=== PATIENT | female | born 1970 | race Caucasian/White ===

== ENCOUNTER 2020-04-12 11:45 | Outpatient (REF) | payer OTHER, SELFPAY ==
[2020-04-13 09:17] LABS: Mumps Virus IgG Antibody 9.24 AU/mL; Varicella IgG Antibody >4000.00 index
[2020-04-13 13:32] LABS: Rubella IgM Antibody <20.00 AU/mL
[2020-04-15 07:47] LABS: HBc Num1 0.08 S/CO (0.00-0.79); Hepatitis B Core Antibody Nonreactive (Nonreactive)
== END 2020-04-12 11:46 | disposition home or self-care (01) ==
LOC: HO.LAB 11:45
PROVIDERS: PCP Internal Medicine; Visit Provider Nurse Practitioner Family
DX: Z00.00 Encounter for general adult medical examination without abnormal findings (principal)
CPT/HCPCS: 86704; 86735; 86762; 86765; 86787

== ENCOUNTER 2020-09-02 07:00 | Outpatient (RCR) | payer OTHER, SELFPAY ==
--- NOTE | 2020-06-20 16:18 | MHC.PT.EP ---
[facility] [place] [facility] [place] [facility] [place] [facility] [address] Mahin Tejada [address] [phone] F: [phone] F: [phone] F: [phone] F: [phone] Physical Therapy Plan of Care Date of Evaluation: 06/20/20 Date of Surgery: Diagnosis: right shoulder pain Assessment: The patient had reduced ROM in shoulder, reduced strength in right shoulder, fairly normal ROM in cervical spine. Pt was positive for impingement tests for right RTC. Pt negative for RTC tests. Pt was negative for labral special tests as well. Pt has less pain with PROM. Her pain does not have a capsular pattern as she had good capsular mobility passively. Pt is a good candidate to improve gentle ROM and strength exercises. Frequency and Duration: The patient will be seen 2x/week x 4 weeks Short Term Goals: 1. Pt to be able to report 50% improvement in functional reaching. Pt to be able to report 50% less pain with getting dressed. Curriculum And Assessment Coordinator Goals: 4 weeks - The patient to have greater than 160 degrees of flexion and abduction to show improved functional ROM. 4 weeks ? The patient to have 5/5 strength with flexion and abduction to demonstrate functional strength 4 weeks ? The patient to be able to return to all functional reaching, self care ADL's without any limitation from pain or loss of ROM. Treatment Plan: Modalities to reduce pain, spasms and effusion. Manual therapy to restore motion and function. Therapeutic exercise to improve strength and flexibility. Neuromuscular re-education for posture and balance. Therapeutic activities to return to functional activities of daily living. Electronically signed by: Pamela Hernandez PT DPT Please sign and return to therapist. Thank you for your referral.
--- NOTE | 2020-09-02 08:52 | MHC.PT.DC ---
[facility] [place] Office [place] Office [place] Office [address] Mahin Tejada [address] [phone] F: [phone] F: [phone] F: [phone] F: [phone] Physical Therapy Discharge Report Diagnosis: right shoulder pain Date of Surgery: Date of Evaluation: 06/20/20 Date of Discharge: 09/02/20 Treatments to Date: 16 Cancellations to Date: No Shows to Date: Discharge Status: Achieved Goals Improved Function Independent with HEP Patient Elected to Stop Discharge Summary: right shoulder flexion 166, abd 167, shoulder ER 90, IR 90. MMT 5/5 in flexion, abd, elbow flexion/ext, IR, 4+/5 for shoulder ER. The patient arrived reporting less pain, more return to PLOF, and independence with HEP. Electronically signed by: Pamela Hernandez PT DPT Please sign and return to therapist. Thank you for your referral.
== END 2020-09-02 09:00 | disposition home or self-care (01) ==
LOC: HO.PT 07:00
PROVIDERS: PCP Internal Medicine; Visit Provider Internal Medicine
DX: M25.511 Pain in right shoulder (principal)
CPT/HCPCS: 97033; 97110; 97112; 97140; 97162

== ENCOUNTER 2020-11-26 09:24 | Outpatient (REF) | payer OTHER, SELFPAY ==
[2020-11-26 10:56] LABS: Estimated Average Glucose 103 mg/dL; Hemoglobin A1c % 5.2 %
[2020-11-26 11:31] LABS: Free T4 (Free Thyroxine) 0.85 ng/dL (0.71-1.85); Thyroid Stimulating Hormone 1.38 uIU/mL (0.32-4.0)
[2020-11-26 11:44] LABS: Alanine Aminotransferase 17 U/L (0-31); Albumin Level 3.9 g/dL (3.5-5.0); Alkaline Phosphatase 66 U/L (39-117); Anion Gap 14 (12-20); Aspartate Amino Transferase 14 U/L (5-31); Bilirubin Total 0.3 mg/dL (0.0-1.0); Blood Urea Nitrogen 13 mg/dL (9-16); Calcium 9.2 mg/dL (8.4-10.2); Carbon Dioxide 23 mmol/L (22-29); Chloride 108 mmol/L (96-108); Estimated Glomerular Filt Rate > 60; Glucose Random 109 mg/dL (60-115); Potassium 4.6 mmol/L (3.3-5.1); Sodium 140 mmol/L (135-145); Total Protein 6.8 g/dL (6.5-8.0)
[2020-11-26 11:53] LABS: Folate > 20.0 ng/mL (> or = 4.0); Vitamin B12 262 pg/mL (200-900)
== END 2020-11-26 09:25 | disposition home or self-care (01) ==
LOC: HO.LAB 09:24
PROVIDERS: PCP Internal Medicine; Visit Provider Internal Medicine
DX: R73.02 Impaired glucose tolerance (oral) (principal)
CPT/HCPCS: 36415; 80053; 82607; 82746; 83036; 84439; 84443

== ENCOUNTER 2021-12-16 08:47 | Outpatient (REF) | payer OTHER, SELFPAY ==
[2021-12-16 09:07] LABS: MANUAL DIFF FLAG NO
[2021-12-16 09:42] LABS: Basophils Percent Auto 0.7 % (0-2); Eosinophils Absolute Auto 0.2 X10*3/uL (0.0-0.4); Hematocrit 35.3 % (37.0-47.0); Hemoglobin 11.6 g/dl (12.0-16.0); Imm Gran Abs Auto 0.03 X10*3/uL (0.00-0.03); Imm Gran Pct Auto 0.5 % (0.0-0.4); Lymphocytes Absolute Auto 1.9 X10*3/uL (1.2-4.9); Lymphocytes Percent Auto 30.7 % (20-40); Mean Corpuscular HGB Conc 32.9 g/dl (31.0-35.0); Mean Corpuscular Hemoglobin 29.1 pg (27.0-33.0); Mean Corpuscular Volume 88.7 fL (80.0-98.0); Mean Platelet Volume 10.3 fL (9.4-12.3); Monocytes Absolute Auto 0.5 X10*3/uL (0.1-1.2); Monocytes Percent Auto 8.9 % (2-11); Neutrophils Absolute Auto 3.4 x10*3/uL (2.0-8.3); Neutrophils Percent Auto 56.2 % (45-73); Platelet Count 347 X10*3/uL (160-400); Red Blood Count 3.98 X10*6/uL (4.20-5.50); Red Cell Distribution Width 13.9 % (11.0-16.0); White Blood Count 6.1 X10*3/uL (4.8-10.8)
[2021-12-16 09:50] LABS: Estimated Average Glucose 114 mg/dL; Hemoglobin A1c % 5.6 %
[2021-12-16 10:08] LABS: Alanine Aminotransferase 18 U/L (0-31); Alkaline Phosphatase 74 U/L (39-117); Anion Gap 15 (12-20); Aspartate Amino Transferase 13 U/L (5-31); Bilirubin Total 0.3 mg/dL (0.0-1.0); Blood Urea Nitrogen 15 mg/dL (9-16); Calcium 9.2 mg/dL (8.4-10.2); Carbon Dioxide 22 mmol/L (22-29); Chloride 109 mmol/L (96-108); Cholesterol 160 mg/dL; Estimated Glomerular Filt Rate > 60; Glucose Random 109 mg/dL (60-115); HDL Cholesterol 39 mg/dL; LDL Cholesterol Calculated 73 mg/dl; Potassium 4.7 mmol/L (3.3-5.1); Sodium 141 mmol/L (135-145); Total Protein 7.1 g/dL (6.5-8.0); Triglycerides 242 mg/dL
[2021-12-16 10:32] LABS: Free T4 (Free Thyroxine) 0.89 ng/dL (0.71-1.85); Thyroid Stimulating Hormone 1.68 uIU/mL (0.32-4.0)
[2021-12-16 10:40] LABS: Folate 16.7 ng/mL (> or = 4.0); Vitamin B12 562 pg/mL (200-900)
== END 2021-12-16 08:48 | disposition home or self-care (01) ==
LOC: HO.LAB 08:47
PROVIDERS: PCP Internal Medicine; Visit Provider Internal Medicine
DX: I10 Essential (primary) hypertension (principal); E78.00 Pure hypercholesterolemia, unspecified; R73.02 Impaired glucose tolerance (oral); K21.9 Gastro-esophageal reflux disease without esophagitis
CPT/HCPCS: 36415; 80053; 80061; 82306; 82607; 82746; 83036; 84439; 84443; 85025

== ENCOUNTER 2022-06-03 15:08 | Outpatient (REF) | payer OTHER, SELFPAY ==
[2022-06-03 15:22] LABS: MANUAL DIFF FLAG NO
[2022-06-03 15:44] LABS: Appearance Urine Turbid; Color Urine Yellow; Glucose Urine UA Negative (Negative); Leukocyte Esterase Urine Trace (Negative); Nitrite Urine Negative (Negative); PH 6.5 (5.0-9.0); UMIC TRIGGER UA YES; Urine Blood Negative (Negative); Urine Ketones Negative (Negative); Urine Protein Negative (Neg-Trace)
[2022-06-03 15:44] LABS: Basophils Percent Auto 0.6 % (0-2); Eosinophils Absolute Auto 0.2 X10*3/uL (0.0-0.4); Eosinophils Percent Auto 2.4 % (0-4); Hematocrit 31.4 % (37.0-47.0); Hemoglobin 10.1 g/dl (12.0-16.0); Imm Gran Abs Auto 0.02 X10*3/uL (0.00-0.03); Imm Gran Pct Auto 0.3 % (0.0-0.4); Lymphocytes Absolute Auto 2.5 X10*3/uL (1.2-4.9); Mean Corpuscular HGB Conc 32.2 g/dl (31.0-35.0); Mean Platelet Volume 10.8 fL (9.4-12.3); Monocytes Absolute Auto 0.4 X10*3/uL (0.1-1.2); Monocytes Percent Auto 6.1 % (2-11); Neutrophils Absolute Auto 3.9 x10*3/uL (2.0-8.3); Neutrophils Percent Auto 55.6 % (45-73); Platelet Count 344 X10*3/uL (160-400); Red Blood Count 3.74 X10*6/uL (4.20-5.50); Red Cell Distribution Width 15.5 % (11.0-16.0)
[2022-06-03 15:53] LABS: Bacteria Urine 1+ (None Seen); Hyaline Casts Urine 0-2 /LPF (0-2); RBC Urine 0-2 /HPF (0-2); Squamous Epithelial Cell Urine >20 /HPF (0-2); WBC Urine 0-5 /HPF (0-5)
[2022-06-03 16:18] LABS: Alanine Aminotransferase 13 U/L (0-31); Albumin Level 3.9 g/dL (3.5-5.0); Alkaline Phosphatase 76 U/L (39-117); Anion Gap 15 (12-20); Aspartate Amino Transferase 12 U/L (5-31); Bilirubin Total 0.5 mg/dL (0.0-1.0); Blood Urea Nitrogen 11 mg/dL (9-16); Calcium 9.3 mg/dL (8.4-10.2); Carbon Dioxide 19 mmol/L (22-29); Chloride 111 mmol/L (96-108); Estimated Glomerular Filt Rate > 60; Glucose Random 96 mg/dL (60-115); Iron 92 mcg/dL (30-160); Percent Iron Saturation 26 % (15-50); Potassium 4.3 mmol/L (3.3-5.1); Sodium 141 mmol/L (135-145); Total Iron Binding Capacity 359 mcg/dL (228-428); Total Protein 6.8 g/dL (6.5-8.0); Unsaturated Iron Binding 267 ug/dL
[2022-06-03 16:46] LABS: Ferritin 11 ng/mL (10-250); Folate 18.4 ng/mL (> or = 4.0); Free T4 (Free Thyroxine) 0.94 ng/dL (0.71-1.85); Thyroid Stimulating Hormone 1.78 uIU/mL (0.32-4.0); Vitamin B12 413 pg/mL (200-900)
== END 2022-06-03 15:09 | disposition home or self-care (01) ==
LOC: HO.LAB 15:08
PROVIDERS: PCP Internal Medicine; Visit Provider Internal Medicine
DX: R42 Dizziness and giddiness (principal)
CPT/HCPCS: 36415; 80053; 81001; 82607; 82728; 82746; 83540; 84439; 84443; 85025

== ENCOUNTER → 2022-06-30 13:07 | Outpatient (BNVA) | payer OTHER, SELFPAY | PROVIDERS: PCP Internal Medicine; Visit Provider Psychiatry & Neurology Psychiatry | DX: Z13.89 Encounter for screening for other disorder (principal) ==

== ENCOUNTER → 2022-08-18 14:31 | Outpatient (BNVA) | payer OTHER, SELFPAY | PROVIDERS: PCP Internal Medicine; Visit Provider Psychiatry & Neurology Psychiatry | DX: Z13.89 Encounter for screening for other disorder (principal) ==

== ENCOUNTER 2022-12-08 08:56 | Outpatient (AMB) | payer OTHER, SELFPAY ==
[2022-12-08 09:08] VITALS: BP 128/82; PULSE 78; O2SAT 98; BMI 35.8
--- NOTE | 2022-12-08 09:08 | MHC.PC.OV ---
Vital Signs 12/08/22 09:08 Height 5 ft 2 in Weight 196 lb BMI 35.8 BP 128/82 Blood Pressure Location Lt brachial Position Sitting Pulse 78 Pulse Source Pulse Oximeter Pulse Oximetry (%) 98 Oxygen Delivery Method Room Air Intake Visit Reasons: Annual Exam Fitness Professional Required: No Accompanied by: Self / Same As Patient Allergies piperacillin [From ZOSYN] Allergy (Severe, Verified 12/08/22 09:09) HIVES tazobactam [From ZOSYN] Allergy (Severe, Verified 12/08/22 09:09) HIVES lisinopril Allergy (Intermediate, Verified 12/08/22 09:09) Cough Medication List - Last Reconciled 12/08/22 by Zachariah Mckeon MD albuterol sulfate 90 mcg/actuation 0 mcg inhalation amlodipine 2.5 mg PO DAILY 90 days clobetasol 0.05% 1 appl topical BID 2 weeks esomeprazole magnesium (Nexium) 40 mg PO DAILY lorazepam 0.5 mg PO DAILY PRN multivitamin 1 tab PO DAILY sertraline 100 mg PO DAILY Tobacco use date assessed: 12/08/22 Dental Screening Dental Screen Date: 12/08/22 Did you have a dental visit in the last 12 months?: Yes Did you have a dental problem in the last 6 months where you did not have access to dental care?: No Was dental information given to patient?: Patient has dentist HPI Annual Exam HPI Details 52-year-old obese female with a history of asthma impaired glucose tolerance hypertension GERD and generalized anxiety disorder last seen in November 2021. Patient is here for physical exam. Blood work request at that time. Patient has been following psychiatry for depression on sertraline discontinued Topamax. seeing [facility] as protonix not helping . - change in diet- SBO treatment flagyl and nexium 40 mg BID- PFSH Medical History (Updated 12/08/22 @ 09:24 by Zachariah Mckeon MD) ASCUS favor benign Asthma Colon cancer screening GERD (gastroesophageal reflux disease) Hypertension Obesity (BMI 30-39.9) Panic disorder Right arm pain Vitamin D deficiency Surgical History H/O cervical polypectomy History of appendectomy History of section History of hand surgery History of hysteroscopy Family History (Updated 12/08/22 @ 09:10 by Oliva Valentin CMA) Father Hypertension CVD (cardiovascular disease) Diabetes Mother TIA (transient ischemic attack) Breast cancer Hypertension CVD (cardiovascular disease) Dementia, Onset Age: 72 Paternal Grandfather Myocardial infarction Sister Breast cancer Social History (Updated 12/08/22 @ 09:30 by Zachariah Mckeon MD) Housing: House Alcohol intake: current Alcohol intake frequency: a few times a week Patient Tobacco Use Status: Never used Tobacco e-Cigarette/Vaping Use: Never Used Second Hand Smoke Exposure: No service: No Current occupational status: employed Cognitive needs: No Hearing needs: No Vision needs: Yes (reading glasses) Questionnaire PHQ-9 Over the last 2 weeks, how often have you been bothered by any of the following problems? 1. Little interest or pleasure in doing things: several days 2. Feeling down, depressed, or hopeless: several days 3. Trouble falling or staying asleep, or sleeping too much: not at all 4. Feeling tired or having little energy: not at all 5. Poor appetite or overeating: not at all 6. Feeling bad about yourself - or that you are a failure or have let yourself or your family down: not at all 7. Trouble concentrating on things, such as reading the newspaper or watching television: not at all 8. Moving or speaking so slowly that other people could have noticed. Or the opposite - being so fidgety or restless that you have been moving around a lot more than usual: not at all 9. Thoughts that you would be better off or of hurting yourself in some way: not at all Total score: 2 Depression Screening Interpretation: Positive Source: Developed by Drs. Steve Borges, Denisse Petersen, Kev Marcus and colleagues, with an educational neeraj from [employer]. Thrive Questionnaire Date Thrive assessed: 12/08/22 I am a: Patient What is your living situation today?: I have a steady place to live Within the past 12 months, did the food you bought not last and you didn't have the money to get more?: Never true Within the past 12 months, did you worry whether your food would run out before you got money to buy more?: Never true Do you have trouble paying for medicines?: No Do you have trouble getting transportation to medical appointments?: No Do you have trouble paying your heating and electricity bill?: No Do you have trouble taking care of your child, family member or friend?: No Do you have trouble with day-to-day activities such as bathing, preparing meals, shopping, managing finances, etc.?: No Are you currently unemployed and looking for a job?: No Are you interested in more education?: No Currently or been in a relationship where the following occur: no concerns reported AUDIT C Alcohol Use Questionnaire (AUDIT-C) 1. How often do you have a drink containing alcohol?: 2-3 times a week 2. How many drinks containing alcohol do you have on a typical day when you are drinking?: 1 or 2 3. How often do you have six or more drinks on one occasion?: Never Total Score: 3 ARNEL-7 AMB Questionnaire ARNEL-7 Date ARNEL - 7 assessed: 12/08/22 Feeling nervous, anxious, or on edge: 1 = Several days Not being able to stop or control worryin = Several days Worrying too much about different things: 1 = Several days Trouble relaxin = Several days Being so restless that it is hard to sit still: 1 = Several days Becoming easily annoyed or irritable: 1 = Several days Feeling afraid as if something awful might happen: 1 = Several days Total ARNEL-7 score (0-4 normal; 5-9 mild; 10-14 moderate; 15-21 severe): 7 Source: Developed by Drs. Steve Borges, Denisse Petersen, Kev Marcus and colleagues, with an educational neeraj from [employer]. Review of Systems Const Denies poor appetite and Denies weakness Eyes Denies no additional complaints ENT Reports Normal hearing present, Denies dizziness, Denies nasal congestion, Denies tinnitus and Denies sore throat Card Denies chest pain, Denies syncope, Denies rapid heart rate and Denies dyspnea Resp Denies cough and Denies dyspnea GI Denies change in stool character, Reports constipation, Denies diarrhea, Denies nausea and Denies vomiting Denies urinary frequency, Denies difficulty voiding and Denies dysuria Neuro Reports Normal hearing present, Denies confusion, Denies dizziness, Denies syncope and Denies weakness Psych Denies confusion Physical exam (Primary Care) Vital Signs: Last Vital Signs Pulse 78 12/08/22 09:08 BP 128/82 12/08/22 09:08 Pulse Ox 98 12/08/22 09:08 Oxygen Delivery Method Room Air 12/08/22 09:08 BMI result Body Mass Index 35.8 Tobacco/Smoking Status: Tobacco use Status Tobacco use date assessed 12/08/22 12/08/22 09:15 Patient Tobacco Use Status Never used Tobacco 12/08/22 09:15 e-Cigarette/Vaping Use Never Used 12/08/22 09:15 PHQ-9: PHQ-9 Score PHQ-9: Total score 2 12/08/22 09:15 Depression Screening Interpretation: Positive Thrive Assessment: Date of Thrive Assessment Date Thrive assessed 12/08/22 12/08/22 09:15 Currently or been in a relationship where the following occur: no concerns reported Const General: No confusion Orientation/consciousness: No confusion HENMT Head: Yes normocephalic Ears: external ears normal and TM's normal bilaterally Face and sinus: Yes normal facial exam Mouth: moist mucous membranes Throat: Yes tonsils normal Eyes Conjunctivae: conjunctivae normal Pupils: Equal, round and reactive pupils present and Pupil accommodation reflex normal Direct Ophthalmoscopy: normal light reflex Neck Neck: No lymphadenopathy Thyroid: Thyroid normal Chest Chest palpation & inspection: normal inspection of the chest Resp Effort & Inspection: normal respiratory effort and no audible wheezes Auscultation: clear to auscultation bilaterally, no crackles, no wheezes and lung sounds not diminished Cardio Rate: regular rate Rhythm: regular rhythm Peripheral pulses: radial pulses present and dorsalis pedis present GI Palpation (GI): no masses Auscultation: normal bowel sounds and normoactive bowel sounds Rectal Exam - Female: deferred Skin General skin exam: no rashes or lesions noted Rashes: no rashes Neuro General: No confusion Cranial nerves: Yes Equal, round and reactive pupils present and Yes Normal hearing present Cognition (Neuro): normal cognition Gait exam (Neuro): Normal gait present Motor exam (neuro): 5/5 motor strength present throughout Deep tendon reflexes (DTR's): Right brachioradialis reflex intensity grade: 2+, Left brachioradialis reflex intensity grade: 2+, Right patellar reflex intensity grade: 2+ and Left patellar reflex intensity grade: 2+ Extrem General: No edema Assessment and Plan Assessment & Plan (1) Annual physical exam: Code(s): Z00.00 - Encounter for general adult medical examination without abnormal findings (2) Obesity (BMI 30-39.9): Code(s): E66.9 - Obesity, unspecified Plan: Diet and exercise (3) Asthma: Code(s): J45.909 - Unspecified asthma, uncomplicated Plan: Continue with inhaler as needed (4) Hypertension: Code(s): I10 - Essential (primary) hypertension Qualifiers: Hypertension type: essential hypertension Qualified Code(s): I10 - Essential (primary) hypertension Plan: Continue with blood pressure medication. Decrease salt intake and exercise patient is taking amlodipine 2.5 mg once a day (5) GERD (gastroesophageal reflux disease): Code(s): K21.9 - Gastro-esophageal reflux disease without esophagitis Qualifiers: Esophagitis presence: without esophagitis Qualified Code(s): K21.9 - Gastro-esophageal reflux disease without esophagitis Plan: Avoid the foods that causes that usually spicy foods, tomato products, juices, coffee, soda and foods that your sensitive to. After eating do not lie down, allow 3-4 hours before in lie down. And keep the head of bed above 30 degrees to avoid the acid from going up. (6) Impaired glucose tolerance: Code(s): R73.02 - Impaired glucose tolerance (oral) Plan: Decrease the amount of carbohydrate intake, pasta, bread, rice and potatoes are all sugar and that is aside from all the sweet stuff, remember that fruits are good but they are Sweet also. (7) Generalized anxiety disorder: Comment: Dr. Spangler Code(s): F41.1 - Generalized anxiety disorder Plan: Patient continues to follow-up with psychiatry and presently on sertraline and lorazepam as needed (8) H/O dysthymia: Code(s): Z86.59 - Personal history of other mental and behavioral disorders Plan: Continue to follow-up with Psychiatry Orders: Orders Vitamin B12 and Folate Today Z86.59 - Personal history of other mental and behavioral disorders Comprehensive Met. Panel Today R73.02 - Impaired glucose tolerance (oral) Ferritin Today Z86.59 - Personal history of other mental and behavioral disorders Hemoglobin A1c Today R73.02 - Impaired glucose tolerance (oral) IRON PROFILE Today Z86.59 - Personal history of other mental and behavioral disorders Lipid Panel Today E78.00 - Pure hypercholesterolemia, unspecified, Z86.59 - Personal history of other mental and behavioral disorders Free T4 (Free Thyroxine) Today Z86.59 - Personal history of other mental and behavioral disorders Thyroid Stimulating Hormone Today Z86.59 - Personal history of other mental and behavioral disorders Vitamin D 25-OH Total Today Z86.59 - Personal history of other mental and behavioral disorders Complete Blood Count Auto Diff Today Z86.59 - Personal history of other mental and behavioral disorders Reticulocyte Count Today Z86.59 - Personal history of other mental and behavioral disorders Coding Level of Care Code Est Pt Prev Care 40-64y(00744) Diagnoses Annual physical exam Z00.00 Obesity (BMI 30-39.9) E66.9 Asthma J45.909 Hypertension I10 Hypertension type: essential hypertension GERD (gastroesophageal reflux disease) K21.9 Esophagitis presence: without esophagitis Impaired glucose tolerance R73.02 Generalized anxiety disorder F41.1 H/O dysthymia Z86.59
== END 2022-12-08 09:44 | disposition home or self-care (01) ==
PROVIDERS: PCP Internal Medicine; Visit Provider Internal Medicine
DX: Z00.00 Encounter for general adult medical examination without abnormal findings (principal); J45.909 Unspecified asthma, uncomplicated; I10 Essential (primary) hypertension; K21.9 Gastro-esophageal reflux disease without esophagitis; Z86.59 Personal history of other mental and behavioral disorders; E66.9 Obesity, unspecified; R73.02 Impaired glucose tolerance (oral); F41.1 Generalized anxiety disorder
CPT/HCPCS: 99396

== ENCOUNTER 2022-12-15 08:24 | Outpatient (REF) | payer OTHER, SELFPAY ==
[2022-12-15 08:43] LABS: MANUAL DIFF FLAG NO
[2022-12-15 09:11] LABS: Basophils Percent Auto 0.3 % (0-2); Eosinophils Absolute Auto 0.1 X10*3/uL (0.0-0.4); Eosinophils Percent Auto 2.1 % (0-4); Hematocrit 29.9 % (37.0-47.0); Hemoglobin 9.4 g/dl (12.0-16.0); Imm Gran Abs Auto 0.02 X10*3/uL (0.00-0.03); Imm Gran Pct Auto 0.3 % (0.0-0.4); Immature Retic Fraction 28.8 % (3.0-15.9); Lymphocytes Absolute Auto 1.6 X10*3/uL (1.2-4.9); Lymphocytes Percent Auto 28.2 % (20-40); Mean Corpuscular HGB Conc 31.4 g/dl (31.0-35.0); Mean Corpuscular Hemoglobin 25.1 pg (27.0-33.0); Mean Corpuscular Volume 79.7 fL (80.0-98.0); Mean Platelet Volume 10.8 fL (9.4-12.3); Monocytes Absolute Auto 0.4 X10*3/uL (0.1-1.2); Monocytes Percent Auto 7.7 % (2-11); Neutrophils Absolute Auto 3.5 x10*3/uL (2.0-8.3); Neutrophils Percent Auto 61.4 % (45-73); Platelet Count 305 X10*3/uL (160-400); Red Blood Count 3.75 X10*6/uL (4.20-5.50); Red Cell Distribution Width 17.5 % (11.0-16.0); Retic HGB Equivalent 26.7 pg (30.0-35.0); Reticulocyte Percent 1.7 % (0.5-1.8); Reticulocytes Absolute 0.062 X10*6/uL (0.026-0.095); White Blood Count 5.8 X10*3/uL (4.8-10.8)
[2022-12-15 09:46] LABS: Alanine Aminotransferase 16 U/L (0-31); Albumin Level 3.8 g/dL (3.5-5.0); Alkaline Phosphatase 61 U/L (39-117); Anion Gap 12 (12-20); Aspartate Amino Transferase 12 U/L (5-31); Bilirubin Total 0.2 mg/dL (0.0-1.0); Blood Urea Nitrogen 13 mg/dL (9-16); Calcium 9.3 mg/dL (8.4-10.2); Carbon Dioxide 22 mmol/L (22-29); Chloride 110 mmol/L (96-108); Cholesterol 175 mg/dL (<200); Estimated Glomerular Filt Rate > 60; Glucose Random 140 mg/dL (60-115); HDL Cholesterol 43 mg/dL (>40); Iron 22 mcg/dL (30-160); LDL Cholesterol Calculated 101 mg/dL (<100); Percent Iron Saturation 7 % (15-50); Potassium 4.1 mmol/L (3.3-5.1); Sodium 140 mmol/L (135-145); Total Iron Binding Capacity 317 mcg/dL (228-428); Total Protein 7.3 g/dL (6.5-8.0); Triglycerides 158 mg/dL (<150); Unsaturated Iron Binding 295 ug/dL
[2022-12-15 10:04] LABS: Estimated Average Glucose 134 mg/dL; Hemoglobin A1c % 6.3 % (<6.0)
[2022-12-15 10:14] LABS: Ferritin 10 ng/mL (10-250); Free T4 (Free Thyroxine) 0.81 ng/dL (0.71-1.85); Thyroid Stimulating Hormone 1.91 uIU/mL (0.32-4.0); Vitamin D 25-OH Total 49.5 ng/mL (>30)
[2022-12-15 10:15] LABS: Folate 17.3 ng/mL (> or = 4.0); Vitamin B12 389 pg/mL (200-900)
== END 2022-12-15 08:25 | disposition home or self-care (01) ==
LOC: HO.LAB 08:24
PROVIDERS: PCP Internal Medicine; Visit Provider Internal Medicine
DX: R73.02 Impaired glucose tolerance (oral) (principal); E78.00 Pure hypercholesterolemia, unspecified; Z86.59 Personal history of other mental and behavioral disorders; E55.9 Vitamin D deficiency, unspecified; D64.9 Anemia, unspecified
CPT/HCPCS: 36415; 80053; 80061; 82306; 82607; 82728; 82746; 83036; 83540; 84439; 84443; 85025; 85045

== ENCOUNTER 2023-01-05 10:45 | Outpatient (AMB) | payer OTHER, SELFPAY ==
--- NOTE | 2023-01-05 10:52 | A.OFFPSYCH_ITS ---
Intake Intake Visit Reasons: depression Allergies piperacillin [From ZOSYN] Allergy (Severe, Verified 12/08/22 09:09) HIVES tazobactam [From ZOSYN] Allergy (Severe, Verified 12/08/22 09:09) HIVES lisinopril Allergy (Intermediate, Verified 12/08/22 09:09) Cough Medication List - Last Reconciled 01/05/23 by Rodrick Spangler MD albuterol sulfate 90 mcg/actuation 0 mcg inhalation amlodipine 2.5 mg PO DAILY 90 days ascorbate calcium (vitamin C) 500 mg PO DAILY clobetasol 0.05% 1 appl topical BID 2 weeks esomeprazole magnesium (Nexium) 40 mg PO DAILY ferrous sulfate (FeroSul) 325 mg PO DAILY lorazepam 0.5 mg PO DAILY PRN multivitamin 1 tab PO DAILY sertraline 100 mg PO DAILY HPI- Psychiatric Chief Complaint: depression HPI Narrative: Pt seen in f/u mood has been better generally recently dx iron def anemia does deal with her d with significant anxiety dx pt feeling much better knowing her fatigue has been iron def related things generally going well at work and home. Feels supported by her . Chronic worries about a daughter who has ADD panic disorder sleep and appetite okay able to enjoy things mood improved feels more energy. Feels better generally on 100 mg sertraline than she did on lower dose Past Psychiatric History: hx recurrent depression and anxiety Mental Status Exam Mental Status Exam Narrative: Mental Status Exam Narrative: Appearance: Casually dressed Behavior: Cooperative appropriate psychomotor: Within normal limits Speech: Normal volume and prosody Thought proccess logical and goal-directed Thought content: Future oriented no self-harming thoughts some concerns regarding her daughter Mood: Euthymic Affect: Appropriate to mood full affect SI:denies HI:denies VH/AH:none Delusions: None Insight/judgment: Good insight and judgment Memory/cog: Intact Assessment and Plan Assessment & Plan (1) Iron deficiency anemia: Status: Acute Code(s): D50.9 - Iron deficiency anemia, unspecified (2) H/O dysthymia: Status: Acute Code(s): Z86.59 - Personal history of other mental and behavioral disorders (3) Generalized anxiety disorder: Status: Acute Code(s): F41.1 - Generalized anxiety disorder Plan Patient generally feeling better knowing she had iron deficiency anemia now on our placement mood improved with sertraline 100 mg. Counseling and coordination of Care Pt. Self Management counseling: Parenting skills Details-Self Mgmt counseling: Issues related to her daughter with panic disorder agoraphobia and management Medication management counseling: Effectiveness Diagnosis and Prognosis Counseling: Adequacy of current interventions Details: I spent [38] minutes reviewing the record, seeing the patient and documenting in the medical record. Counseling provided to the patient/caregiver as outlined below. Addressed patient/caregiver concerns regarding current medication regime including effective adherence. Addressed patient/caregiver concerns regarding diagnosis and prognosis including accuracy of diagnosis, prognosis over time, impact of diagnosis. Addressed patient/caregiver concerns regarding impact of recent stressors. [facility] Medical History (Updated 12/18/22 @ 17:13 by Zachariah Mckeon MD) Panic disorder Colon cancer screening Vitamin D deficiency GERD (gastroesophageal reflux disease) Obesity (BMI 30-39.9) Asthma ASCUS favor benign Right arm pain Hypertension Surgical History History of hand surgery History of hysteroscopy H/O cervical polypectomy History of section History of appendectomy Family History (Updated 12/08/22 @ 09:10 by Oliva Valentin CMA) Father Hypertension CVD (cardiovascular disease) Diabetes Mother TIA (transient ischemic attack) Breast cancer Hypertension CVD (cardiovascular disease) Dementia, Onset Age: 72 Paternal Grandfather Myocardial infarction Sister Breast cancer Social History (Updated 12/08/22 @ 09:30 by Zachariah Mckeon MD) Housing: House Alcohol intake: current Alcohol intake frequency: a few times a week Patient Tobacco Use Status: Never used Tobacco e-Cigarette/Vaping Use: Never Used Second Hand Smoke Exposure: No service: No Current occupational status: employed Cognitive needs: No Hearing needs: No Vision needs: Yes (reading glasses) Coding Level of Care Code Est Pt Level 3 (36859) Therapy 30m w/E&M (15035) Diagnoses Iron deficiency anemia D50.9 H/O dysthymia Z86.59 Generalized anxiety disorder F41.1
== END 2023-01-05 10:46 | disposition home or self-care (01) ==
LOC: HO.HOP 10:45
PROVIDERS: PCP Internal Medicine; Visit Provider Psychiatry & Neurology Psychiatry
DX: D50.9 Iron deficiency anemia, unspecified (principal); Z86.59 Personal history of other mental and behavioral disorders; F41.1 Generalized anxiety disorder
CPT/HCPCS: 90833; 99213

== ENCOUNTER → 2023-01-05 10:45 | Outpatient (BNVA) | payer OTHER, SELFPAY | PROVIDERS: PCP Internal Medicine; Visit Provider Psychiatry & Neurology Psychiatry ==

== ENCOUNTER 2023-04-01 13:54 | Outpatient (REF) | payer OTHER, SELFPAY ==
[2023-04-01 15:39] LABS: Influenza A PCR NEGATIVE (Negative); Influenza B PCR NEGATIVE (Negative); Resp Syncy Virus RNA Qual PCR NEGATIVE (Negative); SARS COV2 PCR INHOUSE NEGATIVE (Negative)
== END 2023-04-01 13:55 | disposition home or self-care (01) ==
LOC: HO.LAB 13:54
PROVIDERS: PCP Internal Medicine; Visit Provider Internal Medicine
DX: Z11.52 Encounter for screening for COVID-19 (principal); Z20.822 Contact with and (suspected) exposure to COVID-19; R09.89 Other specified symptoms and signs involving the circulatory and respiratory systems
CPT/HCPCS: 0241U

== ENCOUNTER 2023-05-25 14:27 | Outpatient (AMB) | payer OTHER, SELFPAY ==
--- NOTE | 2023-05-25 13:58 | A.OFFPSYCH_ITS ---
Intake Intake Visit Reasons: depression Allergies piperacillin [From ZOSYN] Allergy (Severe, Verified 12/08/22 09:09) HIVES tazobactam [From ZOSYN] Allergy (Severe, Verified 12/08/22 09:09) HIVES lisinopril Allergy (Intermediate, Verified 12/08/22 09:09) Cough HPI- Psychiatric Chief Complaint: depression HPI Narrative: Patient has generally done well she has 1 daughter with anxiety that has also been doing somewhat better. She has been feeling more comfortable at work no significant depressive or anxiety symptoms PHQ-9 in GED are not elevated no complaints of side effects Past Psychiatric History: hx recurrent depression and anxiety Mental Status Exam Mental Status Exam Narrative: Mental Status Exam Narrative: Appearance: Casually dressed Behavior: Cooperative appropriate psychomotor: Within normal limits Speech: Normal volume and prosody Thought proccess logical and goal-directed Thought content: Future oriented feeling better generally regarding her family and work Mood: Euthymic Affect: Appropriate to mood full affect SI:denies HI:denies VH/AH:none Delusions: None Insight/judgment: Good insight and judgment Memory/cog: Intact Assessment and Plan Assessment & Plan (1) Panic disorder: Status: Acute Code(s): F41.0 - Panic disorder [episodic paroxysmal anxiety] Plan Continue sertraline and lorazepam patient generally stable has good attitude able to manage issues at work and with her daughter Medications: New lorazepam 0.5 mg PO DAILY PRN 14 tabs 1RF anxiety Refilled sertraline 100 mg PO DAILY 90 tabs 1RF Counseling and coordination of Care Details-Self Mgmt counseling: Issues related to her daughters managing anxiety symptoms Diagnosis and Prognosis Counseling: Adequacy of current interventions Details: I spent [30] minutes reviewing the record, seeing the patient and documenting in the medical record. Counseling provided to the patient/caregiver as outlined below. Addressed patient/caregiver concerns regarding current medication regime including effective adherence. Addressed patient/caregiver concerns regarding diagnosis and prognosis including accuracy of diagnosis, prognosis over time, impact of diagnosis. Addressed patient/caregiver concerns regarding impact of recent stressors. COUNT INCLUDES THE [facility] Medical History (Updated 12/18/22 @ 17:13 by Zachariah Mckeon MD) Panic disorder Colon cancer screening Vitamin D deficiency GERD (gastroesophageal reflux disease) Obesity (BMI 30-39.9) Asthma ASCUS favor benign Right arm pain Hypertension Surgical History History of hand surgery History of hysteroscopy H/O cervical polypectomy History of section History of appendectomy Family History (Updated 12/08/22 @ 09:10 by Oliva Valentin CMA) Father Hypertension CVD (cardiovascular disease) Diabetes Mother TIA (transient ischemic attack) Breast cancer Hypertension CVD (cardiovascular disease) Dementia, Onset Age: 72 Paternal Grandfather Myocardial infarction Sister Breast cancer Social History (Updated 12/08/22 @ 09:30 by Zachariah Mckeon MD) Housing: House Alcohol intake: current Alcohol intake frequency: a few times a week Patient Tobacco Use Status: Never used Tobacco e-Cigarette/Vaping Use: Never Used Second Hand Smoke Exposure: No service: No Current occupational status: employed Cognitive needs: No Hearing needs: No Vision needs: Yes (reading glasses) Coding Level of Care Code Est Pt Level 4 (15389) Diagnoses Panic disorder F41.0
== END 2023-05-25 14:27 | disposition home or self-care (01) ==
LOC: HO.HOP 14:27
PROVIDERS: PCP Internal Medicine; Visit Provider Psychiatry & Neurology Psychiatry
DX: F41.0 Panic disorder [episodic paroxysmal anxiety] (principal)
CPT/HCPCS: 99214

== ENCOUNTER → 2023-05-25 14:27 | Outpatient (BNVA) | payer OTHER, SELFPAY | PROVIDERS: PCP Internal Medicine; Visit Provider Psychiatry & Neurology Psychiatry ==

== ENCOUNTER 2023-11-02 13:37 | Outpatient (AMB) | payer OTHER, SELFPAY ==
--- NOTE | 2023-11-02 13:58 | A.OFFPSYCH_ITS ---
Intake Intake Visit Reasons: depression Allergies piperacillin [From ZOSYN] Allergy (Severe, Verified 12/08/22 09:09) HIVES tazobactam [From ZOSYN] Allergy (Severe, Verified 12/08/22 09:09) HIVES lisinopril Allergy (Intermediate, Verified 12/08/22 09:09) Cough Medication List - Last Reconciled 11/02/23 by Rodrick Spangler MD albuterol sulfate 90 mcg/actuation 0 mcg inhalation amlodipine 2.5 mg PO DAILY 90 days amlodipine 5 mg PO DAILY ascorbate calcium (vitamin C) 500 mg PO DAILY clobetasol 0.05% 1 appl topical BID 2 weeks esomeprazole magnesium (Nexium) 40 mg PO DAILY lorazepam 0.5 mg PO DAILY PRN multivitamin 1 tab PO DAILY sertraline 100 mg PO DAILY HPI- Psychiatric Chief Complaint: depression HPI Narrative: Patient seen in psychiatric follow-up. 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 Not overly blue or ruminating. PHQ-9 in ARNEL not elevated. Generally gets along well with her and daughters some concern regarding 1 daughter has some difficulty with anxiety and chronic marijuana use. No new medical significant concerns Past Psychiatric History: hx recurrent depression and anxiety Mental Status Exam Mental Status Exam Narrative: Mental Status Exam Narrative: Appearance: Casually dressed Behavior: Cooperative appropriate psychomotor: Within normal limits Speech: Normal volume and prosody Thought proccess logical and goal-directed Thought content: Future oriented feeling better generally regarding her family and work Mood: Euthymic Affect: Appropriate to mood full affect SI:denies HI:denies VH/AH:none Delusions: None Insight/judgment: Good insight and judgment Memory/cog: Intact Assessment and Plan Assessment & Plan (1) Panic disorder: Status: Acute Code(s): F41.0 - Panic disorder [episodic paroxysmal anxiety] (2) Generalized anxiety disorder: Status: Inactive Code(s): F41.1 - Generalized anxiety disorder (3) H/O dysthymia: Status: Acute Code(s): Z86.59 - Personal history of other mental and behavioral disorders Plan Patient stable rare use of lorazepam for occasional panic or insomnia. Stable on 100 mg of sertraline risks benefits alternatives reviewed patient stable wishes to continue on current regimen Medications: Changed From sertraline 100 mg PO DAILY 90 tabs 1RF To sertraline 100 mg PO DAILY 90 tabs 1RF 90 days Refilled lorazepam 0.5 mg PO DAILY PRN 14 tabs 1RF anxiety Counseling and coordination of Care Medication management counseling: Effectiveness and Side effects Details: I spent [30] minutes reviewing the record, seeing the patient and documenting in the medical record. Counseling provided to the patient/caregiver as outlined below. Addressed patient/caregiver concerns regarding current medication regime including effective adherence. Addressed patient/caregiver concerns regarding diagnosis and prognosis including accuracy of diagnosis, prognosis over time, impact of diagnosis. Addressed patient/caregiver concerns regarding impact of recent stressors. [facility] Medical History (Updated 12/06/23 @ 12:56 by Rodrick Spangler MD) Panic disorder Colon cancer screening Vitamin D deficiency GERD (gastroesophageal reflux disease) Obesity (BMI 30-39.9) Asthma ASCUS favor benign Right arm pain Hypertension Surgical History History of hand surgery History of hysteroscopy H/O cervical polypectomy History of section History of appendectomy Family History (Updated 12/08/22 @ 09:10 by Oliva Valentin CMA) Father Hypertension CVD (cardiovascular disease) Diabetes Mother TIA (transient ischemic attack) Breast cancer Hypertension CVD (cardiovascular disease) Dementia, Onset Age: 72 Paternal Grandfather Myocardial infarction Sister Breast cancer Social History (Updated 12/08/22 @ 09:30 by Zachariah Mckeon MD) Housing: House Alcohol intake: current Alcohol intake frequency: a few times a week Patient Tobacco Use Status: Never used Tobacco e-Cigarette/Vaping Use: Never Used Second Hand Smoke Exposure: No service: No Current occupational status: employed Cognitive needs: No Hearing needs: No Vision needs: Yes (reading glasses) Coding Level of Care Code Est Pt Level 4 (73544) Diagnoses Panic disorder F41.0 Generalized anxiety disorder F41.1 H/O dysthymia Z86.59
== END 2023-11-02 14:11 | disposition home or self-care (01) ==
LOC: HO.HOP 13:37
PROVIDERS: PCP Internal Medicine; Visit Provider Psychiatry & Neurology Psychiatry
DX: F41.0 Panic disorder [episodic paroxysmal anxiety] (principal); F41.1 Generalized anxiety disorder; Z86.59 Personal history of other mental and behavioral disorders
CPT/HCPCS: 99214

== ENCOUNTER → 2023-11-02 13:37 | Outpatient (BNVA) | payer OTHER, SELFPAY | PROVIDERS: PCP Internal Medicine; Visit Provider Psychiatry & Neurology Psychiatry ==

== ENCOUNTER 2023-12-14 10:12 | Outpatient (AMB) | payer OTHER, SELFPAY ==
[2023-12-14 10:22] VITALS: BP 126/82; PULSE 83; O2SAT 97; BMI 33.2
--- NOTE | 2023-12-14 10:22 | MHC.PC.OV ---
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 Required: No Accompanied by: Self / Same As Patient Allergies piperacillin [From ZOSYN] Allergy (Severe, Verified 12/14/23 10:23) HIVES tazobactam [From ZOSYN] Allergy (Severe, Verified 12/14/23 10:23) HIVES lisinopril Allergy (Intermediate, Verified 12/14/23 10:23) Cough Medication List - Last Reconciled 12/14/23 by Zachariah Mckeon MD albuterol sulfate 90 mcg/actuation 0 mcg inhalation amlodipine 5 mg PO DAILY clobetasol 0.05% 1 appl topical BID 2 weeks esomeprazole magnesium (Nexium) 40 mg PO DAILY lorazepam 0.5 mg PO DAILY PRN multivitamin 1 tab PO DAILY sertraline 100 mg PO DAILY 90 days Tobacco use date assessed: 12/14/23 Dental Screening Dental Screen Date: 12/14/23 Did you have a dental visit in the last 12 months?: Yes Did you have a dental problem in the last 6 months where you did not have access to dental care?: No Was dental information given to patient?: Patient has dentist HPI pe HPI Details 53-year-old obese female(15 lb weight loss) with asthma hypertension GERD impaired glucose tolerance and generalized anxiety disorder last seen in 12/13/2022 patient is here for physical exam. Patient's mammogram is due colonoscopy is up-to-date 09/12/2021. Review of the notes has been following up with Psychiatry for panic disorder with generalized anxiety disorder and this time presently on sertraline and lorazepam. Blood work did show last year having an elevated blood sugar with iron deficiency anemia. [facility] Medical History (Updated 12/06/23 @ 12:56 by Rodrick Spangler MD) Panic disorder Colon cancer screening Vitamin D deficiency GERD (gastroesophageal reflux disease) Obesity (BMI 30-39.9) Asthma ASCUS favor benign Right arm pain Hypertension Surgical History History of hand surgery History of hysteroscopy H/O cervical polypectomy History of section History of appendectomy Family History (Updated 12/14/23 @ 10:55 by Zachariah Mckeon MD) Father Hypertension CVD (cardiovascular disease) Diabetes Mother TIA (transient ischemic attack) Breast cancer Hypertension CVD (cardiovascular disease) Dementia, Onset Age: 72 Paternal Grandfather Myocardial infarction Sister Breast cancer Social History (Updated 12/14/23 @ 10:56 by Zachariah Mckeon MD) Housing: House Alcohol intake: current Alcohol intake frequency: a few times a week Comment: 2x a week 1 glass Patient Tobacco Use Status: Never used Tobacco e-Cigarette/Vaping Use: Never Used Second Hand Smoke Exposure: No service: No Current occupational status: employed Cognitive needs: No Hearing needs: No Vision needs: Yes (reading glasses) Questionnaire PHQ-9 Over the last 2 weeks, how often have you been bothered by any of the following problems? 1. Little interest or pleasure in doing things: several days 2. Feeling down, depressed, or hopeless: several days 3. Trouble falling or staying asleep, or sleeping too much: not at all 4. Feeling tired or having little energy: not at all 5. Poor appetite or overeating: not at all 6. Feeling bad about yourself - or that you are a failure or have let yourself or your family down: not at all 7. Trouble concentrating on things, such as reading the newspaper or watching television: not at all 8. Moving or speaking so slowly that other people could have noticed. Or the opposite - being so fidgety or restless that you have been moving around a lot more than usual: not at all 9. Thoughts that you would be better off or of hurting yourself in some way: not at all Total score: 2 Depression Screening Interpretation: Positive Depression Screening Done: Yes Source: Developed by Drs. Steve Borges, Denisse Petersen, Kev Marcus and colleagues, with an educational neeraj from [employer]. Thrive Questionnaire Date Thrive assessed: 12/14/23 I am a: Patient What is your living situation today?: I have a steady place to live Within the past 12 months, did the food you bought not last and you didn't have the money to get more?: Never true Within the past 12 months, did you worry whether your food would run out before you got money to buy more?: Never true Do you have trouble paying for medicines?: No Do you have trouble getting transportation to medical appointments?: No Do you have trouble paying your heating and electricity bill?: No Do you have trouble taking care of your child, family member or friend?: No Do you have trouble with day-to-day activities such as bathing, preparing meals, shopping, managing finances, etc.?: No Are you currently unemployed and looking for a job?: No Are you interested in more education?: No Please select the resources that you would like help with: None Currently or been in a relationship where the following occur: No concerns reported THRIVE Score: 0 AUDIT C Alcohol Use Questionnaire (AUDIT-C) 1. How often do you have a drink containing alcohol?: 2-3 times a week 2. How many drinks containing alcohol do you have on a typical day when you are drinking?: 1 or 2 3. How often do you have six or more drinks on one occasion?: Never Total Score: 3 ARNEL-7 AMB Questionnaire ARNEL-7 Date ARNEL - 7 assessed: 12/14/23 Feeling nervous, anxious, or on edge: 1 = Several days Not being able to stop or control worryin = Several days Worrying too much about different things: 1 = Several days Trouble relaxin = Several days Being so restless that it is hard to sit still: 1 = Several days Becoming easily annoyed or irritable: 1 = Several days Feeling afraid as if something awful might happen: 1 = Several days Total ARNEL-7 score (0-4 normal; 5-9 mild; 10-14 moderate; 15-21 severe): 7 Source: Developed by Drs. Steve Borges, Denisse Petersen, Kev Marcus and colleagues, with an educational neeraj from [employer]. Review of Systems Const Denies poor appetite and Denies weakness Eyes Denies no additional complaints ENT Reports Normal hearing present, Denies dizziness, Denies nasal congestion, Denies tinnitus and Denies sore throat Card Denies chest pain, Denies syncope, Denies rapid heart rate and Denies dyspnea Resp Denies cough and Denies dyspnea GI Denies change in stool character, Reports constipation, Denies diarrhea, Denies nausea and Denies vomiting Denies urinary frequency, Denies difficulty voiding and Denies dysuria Neuro Reports Normal hearing present, Denies confusion, Denies dizziness, Denies syncope and Denies weakness Psych Denies confusion Physical exam (Primary Care) Vital Signs: Last Vital Signs Pulse 83 12/14/23 10:22 BP 126/82 12/14/23 10:22 Pulse Ox 97 12/14/23 10:22 Oxygen Delivery Method Room Air 12/14/23 10:22 BMI result Body Mass Index 33.2 Tobacco/Smoking Status: Tobacco use Status Tobacco use date assessed 12/14/23 12/14/23 10:24 Patient Tobacco Use Status Never used Tobacco 12/14/23 10:56 e-Cigarette/Vaping Use Never Used 12/14/23 10:56 PHQ-9: PHQ-9 Score PHQ-9: Total score 2 12/14/23 10:48 Depression Screening Interpretation: Positive Thrive Assessment: Date of Thrive Assessment Date Thrive assessed 12/14/23 12/14/23 10:24 Currently or been in a relationship where the following occur: No concerns reported Const General: No confusion Orientation/consciousness: No confusion HENMT Head: Yes normocephalic Ears: external ears normal and TM's normal bilaterally Face and sinus: Yes normal facial exam Mouth: moist mucous membranes Throat: Yes tonsils normal Eyes Conjunctivae: conjunctivae normal Pupils: Equal, round and reactive pupils present and Pupil accommodation reflex normal Direct Ophthalmoscopy: normal light reflex Neck Neck: No lymphadenopathy Thyroid: Thyroid normal Chest Chest palpation & inspection: normal inspection of the chest Resp Effort & Inspection: normal respiratory effort and no audible wheezes Auscultation: clear to auscultation bilaterally, no crackles, no wheezes and lung sounds not diminished Cardio Rate: regular rate Rhythm: regular rhythm Peripheral pulses: radial pulses present and dorsalis pedis present GI Palpation (GI): no masses Auscultation: normal bowel sounds and normoactive bowel sounds Rectal Exam - Female: deferred Skin General skin exam: no rashes or lesions noted Rashes: no rashes Neuro General: No confusion Cranial nerves: Yes Equal, round and reactive pupils present and Yes Normal hearing present Cognition (Neuro): normal cognition Gait exam (Neuro): Normal gait present Motor exam (neuro): 5/5 motor strength present throughout Deep tendon reflexes (DTR's): Right brachioradialis reflex intensity grade: 2+, Left brachioradialis reflex intensity grade: 2+, Right patellar reflex intensity grade: 2+ and Left patellar reflex intensity grade: 2+ Extrem General: No edema Immunizations tetanus-diphtheria toxoids-Td 2 Lf unit-2 Lf unit/0.5 mL IM suspension Performing Provider: Zachariah Mckeon MD [facility] Administered by: KRISHNA Benavides on 12/14/23 11:15 Dose Route Admin Location Dispensed Lot Number Expiration Date NDC [employer] Professor 0.5 mL IM Left Deltoid 0.5 mL [id number] 06/05/24 [address]-5 [employer] VIS Given Date VIS Provided VIS Publication Date 12/14/23 Single Vaccine 20 Eligibility Eligibility Date Funding Source Not [facility] Eligible 12/14/23 [facility] funds Assessment and Plan Assessment & Plan (1) Annual physical exam: Code(s): Z00.00 - Encounter for general adult medical examination without abnormal findings Plan: Patient is advised to eat healthy, keep well hydrated, keep active and have adequate sleep. (2) Impaired glucose tolerance: Code(s): R73.02 - Impaired glucose tolerance (oral) Plan: Decrease the amount of carbohydrate intake, pasta, bread, rice and potatoes are all sugar and that is aside from all the sweet stuff, remember that fruits are good but they are Sweet also. Will need new blood work (3) Obesity (BMI 30-39.9): Code(s): E66.9 - Obesity, unspecified Plan: Diet and exercise noted 15 lb weight loss. (4) GERD (gastroesophageal reflux disease): Code(s): K21.9 - Gastro-esophageal reflux disease without esophagitis Qualifiers: Esophagitis presence: without esophagitis Qualified Code(s): K21.9 - Gastro-esophageal reflux disease without esophagitis Plan: Avoid the foods that causes that usually spicy foods, tomato products, juices, coffee, soda and foods that your sensitive to. After eating do not lie down, allow 3-4 hours before in lie down. And keep the head of bed above 30 degrees to avoid the acid from going up. (5) Asthma: Code(s): J45.909 - Unspecified asthma, uncomplicated Plan: Continue with the inhaler as needed (6) Hypertension: Code(s): I10 - Essential (primary) hypertension Qualifiers: Hypertension type: essential hypertension Qualified Code(s): I10 - Essential (primary) hypertension Plan: Continue with blood pressure medication. Decrease salt intake and exercise on amlodipine 5 mg once a day (7) Iron deficiency anemia: Code(s): D50.9 - Iron deficiency anemia, unspecified Plan: Patient will need blood work Orders: Orders Hemoglobin A1c Today R73.02 - Impaired glucose tolerance (oral) Comprehensive Met. Panel Today R73.02 - Impaired glucose tolerance (oral) Complete Blood Count Auto Diff Today I10 - Essential (primary) hypertension Lipid Panel Today E78.00 - Pure hypercholesterolemia, unspecified, I10 - Essential (primary) hypertension Thyroid Stimulating Hormone Today I10 - Essential (primary) hypertension Vitamin D 25-OH Total Today I10 - Essential (primary) hypertension Ferritin Today D50.9 - Iron deficiency anemia, unspecified Reticulocyte Count Today D50.9 - Iron deficiency anemia, unspecified UA w Microscopic Today D50.9 - Iron deficiency anemia, unspecified Vitamin B12 and Folate Today I10 - Essential (primary) hypertension Free T4 (Free Thyroxine) Today D50.9 - Iron deficiency anemia, unspecified IRON PROFILE Today D50.9 - Iron deficiency anemia, unspecified Td State Immunization Today Z23 - Encounter for immunization Medications: New tetanus-diphtheria toxoids-Td 0.5 mL IM ONCE 0.5 mL 0RF Z23 - Encounter for immunization Coding Level of Care Code Est Pt Prev Care 40-64y(52100) Diagnoses Annual physical exam Z00.00 Impaired glucose tolerance R73.02 Obesity (BMI 30-39.9) E66.9 Gastroesophageal reflux disease without esophagitis K21.9 Esophagitis presence: without esophagitis Asthma J45.909 Essential hypertension I10 Hypertension type: essential hypertension Iron deficiency anemia D50.9
== END 2023-12-14 11:17 | disposition home or self-care (01) ==
PROVIDERS: PCP Internal Medicine; Visit Provider Internal Medicine
DX: Z00.00 Encounter for general adult medical examination without abnormal findings (principal); E66.9 Obesity, unspecified; Z68.33 Body mass index [BMI] 33.0-33.9, adult; Z23 Encounter for immunization; R73.02 Impaired glucose tolerance (oral); K21.9 Gastro-esophageal reflux disease without esophagitis; J45.909 Unspecified asthma, uncomplicated; I10 Essential (primary) hypertension; D50.9 Iron deficiency anemia, unspecified
CPT/HCPCS: 90471; 90714; 99396

== ENCOUNTER 2024-02-01 11:20 | Outpatient (AMB) | payer OTHER, SELFPAY ==
--- NOTE | 2024-02-01 11:39 | MHC.OFFVISPS ---
Intake Intake Visit Reasons: DEPRESSION Allergies piperacillin [From ZOSYN] Allergy (Severe, Verified 12/14/23 10:23) HIVES tazobactam [From ZOSYN] Allergy (Severe, Verified 12/14/23 10:23) HIVES lisinopril Allergy (Intermediate, Verified 12/14/23 10:23) Cough HPI- Psychiatric Chief Complaint: DEPRESSION HPI Narrative: The patient seen psychiatric follow-up patient will follow-up with her primary care after this appointment. Patient's mood has generally been stable some periods of mild dysphoria at times related to issues at times with her children. Patient's weight is stable she is not wanted to make any changes is aware that SSRIs can contribute to weight gain over time. Patient's mood generally good with a good quality of life anxiety remains in control Past Psychiatric History: hx recurrent depression and anxiety Mental Status Exam Mental Status Exam Narrative: Mental Status Exam Narrative: Appearance: Casually dressed Behavior: Cooperative appropriate psychomotor: Within normal limits Speech: Normal volume and prosody Thought proccess logical and goal-directed Thought content: Future oriented feeling good generally regarding her family and work Mood: Euthymic Affect: Appropriate to mood full affect SI:denies HI:denies VH/AH:none Delusions: None Insight/judgment: Good insight and judgment Memory/cog: Intact Assessment and Plan Assessment & Plan (1) H/O dysthymia: Status: Acute Code(s): Z86.59 - Personal history of other mental and behavioral disorders (2) Panic disorder: Status: Acute Code(s): F41.0 - Panic disorder [episodic paroxysmal anxiety] (3) Generalized anxiety disorder: Status: Inactive Code(s): F41.1 - Generalized anxiety disorder Plan Patient generally stable no significant breakthrough depressive or anxiety symptoms. Patient feels comfortable on following up with her primary care she remains on sertraline 100 mg which seems to be significantly helpful no adverse effects noted patient will continue plan of care very rare lorazepam use does have a history of panic Medications: Refilled sertraline 100 mg PO DAILY 90 tabs 1RF 90 days Counseling and coordination of Care Pt. Self Management counseling: Breathing, Exercise and Cognitive restructuring Details-Self Mgmt counseling: Discussed relaxation skills Diagnosis and Prognosis Counseling: Adequacy of current interventions Details: I spent [40] minutes reviewing the record, seeing the patient and documenting in the medical record. Counseling provided to the patient/caregiver as outlined below. Addressed patient/caregiver concerns regarding current medication regime including effective adherence. Addressed patient/caregiver concerns regarding diagnosis and prognosis including accuracy of diagnosis, prognosis over time, impact of diagnosis. Addressed patient/caregiver concerns regarding impact of recent stressors. [facility] Medical History (Updated 12/06/23 @ 12:56 by Rodrick Spangler MD) Panic disorder Colon cancer screening Vitamin D deficiency GERD (gastroesophageal reflux disease) Obesity (BMI 30-39.9) Asthma ASCUS favor benign Right arm pain Hypertension Surgical History History of hand surgery History of hysteroscopy H/O cervical polypectomy History of section History of appendectomy Family History (Updated 12/14/23 @ 10:55 by Zachariah Mckeon MD) Father Hypertension CVD (cardiovascular disease) Diabetes Mother TIA (transient ischemic attack) Breast cancer Hypertension CVD (cardiovascular disease) Dementia, Onset Age: 72 Paternal Grandfather Myocardial infarction Sister Breast cancer Social History (Updated 12/14/23 @ 10:56 by Zachariah Mckeon MD) Housing: House Alcohol intake: current Alcohol intake frequency: a few times a week Comment: 2x a week 1 glass Patient Tobacco Use Status: Never used Tobacco e-Cigarette/Vaping Use: Never Used Second Hand Smoke Exposure: No service: No Current occupational status: employed Cognitive needs: No Hearing needs: No Vision needs: Yes (reading glasses) Social History: 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
== END 2024-02-01 17:31 | disposition home or self-care (01) ==
LOC: HO.HOP 11:20
PROVIDERS: PCP Internal Medicine; Visit Provider Psychiatry & Neurology Psychiatry
DX: F41.0 Panic disorder [episodic paroxysmal anxiety] (principal); F41.1 Generalized anxiety disorder; Z86.59 Personal history of other mental and behavioral disorders
CPT/HCPCS: 90833; 99213

== ENCOUNTER → 2024-02-01 11:20 | Outpatient (BNVA) | payer OTHER, SELFPAY | PROVIDERS: PCP Internal Medicine; Visit Provider Psychiatry & Neurology Psychiatry ==